=== PATIENT | female | born 1990 | race Caucasian/White ===

== ENCOUNTER 2020-04-05 09:12 | Emergency (ER) | payer OTHER ==
[~2020-04-05] VITALS: Ht 162.6 cm; Wt 58.5 kg
[2020-04-05] MEDS ORDERED: PRENATA CHEWAB1 EACH PO (09:41)
[2020-04-05] MEDS ORDERED: CALCIUM MAGNES1 EAC2 PO (09:42)
== END 2020-04-05 11:51 | disposition home or self-care (01) ==
LOC: ED 09:12
DX: O20.9 Hemorrhage in early pregnancy, unspecified (principal); Z3A.13 13 weeks gestation of pregnancy; Z88.0 Allergy status to penicillin; Z88.8 Allergy status to other drugs, medicaments and biological substances; Z79.899 Other long term (current) drug therapy
CPT/HCPCS: 76801; 76805; 99284-25

== ENCOUNTER 2023-11-29 15:41 | Day surgery (SDC) | payer OTHER ==
[~2023-11-29] VITALS: Ht 162.6 cm; Wt 61.3 kg
[~2023-11-29 15:41] MED LIST: CALCIUM MAGNES1 EAC2 PO; PRENATA CHEWAB1 EACH PO
[2023-11-29 16:10] LABS: BASOPHILS 0.9 % (0-2); EOSINOPHILS 1.6 % (0-6); HEMATOCRIT 35.1 % (35.0-50.0); HEMOGLOBIN 11.9 g/dL (12.0-18.0); MCH 29.9 (27-36); MCHC 33.9 g/dl (30-36); MCV 88.2 fl (81-99); MONOCYTES 7.1 % (0-12); NEUTROPHILS 63.4 % (39-80); PLATELET COUNT 261 K/uL (140-440); RBC 3.98 M/ul (4.3-5.7); RDW 14.5 (10.5-15.0)
[2023-11-29] MEDS ORDERED: SODIUM CHLORIDE 0.9% 1,000 ML IV ONE (16:15)
[2023-11-29 16:20] LABS: ALBUMIN 3.9 g/dL (3.4-5.0); ALBUMIN/GLOBULIN RATIO 1.26 (1.1-2.4); ANION GAP 15.4 (7-21); BILIRUBIN, TOTAL 0.3 ng/dL (0.2-1.0); BUN/CREATININE RATIO 23.43 (6.0-28.6); CALCIUM 9.2 mg/dL (8.5-10.1); CREATININE, SERUM 0.64 mg/dL (0.55-1.02); POTASSIUM 3.4 mmol/L (3.5-5.1)
[2023-11-29] MEDS ORDERED: TRANEXAMIC ACID IN NACL,ISO-OS 100 ML IV ONE (16:27)
[2023-11-29] MEDS ORDERED: TRANEXAMIC ACID IN NACL,ISO-OS 1,000 MG/100 ML PIGGYBACK IV ONE (16:30)
[2023-11-29] MEDS ORDERED: SUCCINYLCHOLINE IN 0.9% NACL 200 MG/10 ML SYRINGE ONE (17:11)
[2023-11-29] MEDS ORDERED: LIDOCAINE HCL 2% 5 ML SDV ONE (17:11)
[2023-11-29] MEDS ORDERED: propofoL 200 MG/20 ML VIAL ONE (17:11)
[2023-11-29] MEDS ORDERED: FAMOTIDINE 20 MG/ 2 ML VIAL ONE (17:18)
[2023-11-29 17:23] LABS: ABO A; ANTIBODY SCREEN NEGATIVE; IS CROSSMATCH COMPATIBLE; RH POSITIVE
[2023-11-29 17:24] LABS: ABO A; RH POSITIVE
[2023-11-29] MEDS ORDERED: ACETAMINOPHEN 1,000 MG/100 ML VIAL ONE (17:43)
[2023-11-29] MEDS ORDERED: PHENYLEPHRINE HCL 10 MG/ML VIAL ONE (17:59)
[2023-11-29 18:35] VITALS: BP 104/63
[2023-11-29 19:35] LABS: BASOPHILS 0.2 % (0-2); EOSINOPHILS 0.2 % (0-6); HEMATOCRIT 25.1 % (35.0-50.0); HEMOGLOBIN 8.3 g/dL (12.0-18.0); LYMPHOCYTES 10.9 % (24-44); MCH 29.4 (27-36); MCHC 33.2 g/dl (30-36); MCV 88.5 fl (81-99); MONOCYTES 3.3 % (0-12); NEUTROPHILS 85.4 % (39-80); PLATELET COUNT 251 K/uL (140-440); RBC 2.84 M/ul (4.3-5.7); RDW 14.9 (10.5-15.0)
[2023-11-29 19:42] VITALS: BP 98/66
[2023-11-30 07:04] LABS: RBC, LEUKOREDUCED 18212405527200X; RBC, LEUKOREDUCED 18212412159000R
--- NOTE | 2023-12-06 12:25 | PATH ---
[facility] [address] [place], [place] [address] Signed SPECIMEN(S): A PRODUCTS OF CONCEPTION SPECIMEN SOURCE: A. PRODUCTS OF CONCEPTION CLINICAL HISTORY: O02.1 Missed FINAL PATHOLOGIC DIAGNOSIS: Products of conception: - Immature placental villi and inflamed decidua consistent with products of conception. NA MICROSCOPIC EXAMINATION: Histologic sections of all submitted blocks are examined by light microscopy. These findings, together with the gross examination, support the pathologic diagnosis. GROSS DESCRIPTION: The specimen, labeled and designated "Azalia, products of conception," is received in formalin and consists of irregular shaped membranous and hemorrhagic tissue fragments that aggregate measure 7.2 x 6.0 x 1.7 cm. tissue is not grossly identified. Neuro Urologist sections are submitted in (A1). JS (under the direct supervision of a pathologist) The Gross Description was prepared using a voice recognition system. The report was reviewed for accuracy; however, sound-alike word errors, addition and/or deletions may occur. If there is any question about this report, please contact Client Services. ADDITIONAL NOTES: Immunohistochemical and/or in situ hybridization studies if performed in this case included appropriate positive controls that reacted as expected. This test was developed and its performance characteristics determined by [facility]. It has not been cleared or approved by the U.S. Food and Drug Administration. The FDA has determined that such clearance or approval is not necessary. This test is used for clinical purposes. It should not be regarded as investigational or for research. [facility] is certified under the Clinical Laboratory Improvement PATIENT NAME: DARIN MALLORY PATHOLOGY DATE OF : 88 REPORT #: [id number] PHYSICIAN: OLEG OG PCP: JAMES WORTHY DO REPORT IS CONFIDENTIAL AND NOT TO BE RELEASED WITHOUT AUTHORIZATION [address], [place] [address] Signed Amendments of 1988 (CLIA) as qualified to perform high complexity clinical laboratory testing. PERFORMING LABORATORY: Technical component was performed by [facility], [address] [place] [address] (CLIA# [id number]). Professional interpretation was performed by [facility] - [facility], [address] [place] [address] (CLIA#: [id number]). Diagnostician: Khushboo Ventura MD Pathologist Electronically Signed 12/06/2023 Copies: ~ PATIENT NAME: DARIN MALLORY PATHOLOGY DATE OF : 88 REPORT #: [id number] PHYSICIAN: OLEG OG PCP: JAMES WORTHY DO REPORT IS CONFIDENTIAL AND NOT TO BE RELEASED WITHOUT AUTHORIZATION
== END 2023-11-29 20:05 | disposition home or self-care (01) ==
LOC: ED 15:41 → DSVR 16:48 → DS 16:48
PROVIDERS: Emergency Medicine; ATTEND Obstetrics & Gynecology
PROC: 10D17ZZ Extraction of Products of Conception, Retained, Via Natural or Artificial Opening (ICD-10-PCS; principal; 2023-11-29 17:40)
DX: O03.4 Incomplete spontaneous abortion without complication (principal); Z88.0 Allergy status to penicillin; Z91.010 Allergy to peanuts; Z91.018 Allergy to other foods
CPT/HCPCS: 01965; 36415; 80053; 84702; 85025; 86850; 86900; 86901; 86922; 96374; 96375; 99284-25; J0131; J0330; J2001; J2371; J2704; J7030; J7060; P9016